=== PATIENT | male | born 1965 | race Caucasian/White ===

== ENCOUNTER 2017-01-17 18:55 | Emergency (ER) | payer OTHER | END 2017-01-17 21:55 | disposition home or self-care (01) | LOC: FER 18:55 | DX: S01.511A Laceration without foreign body of lip, initial encounter (principal); S20.319A Abrasion of unspecified front wall of thorax, initial encounter; Z23 Encounter for immunization; W22.8XXA Striking against or struck by other objects, initial encounter; Y92.69 Other specified industrial and construction area as the place of occurrence of the external cause; Y99.0 Civilian activity done for income or pay | CPT/HCPCS: 90471; 90715 ==

== ENCOUNTER 2021-02-15 20:41 | Emergency (ER) | payer OTHER ==
[2021-02-15 21:29] LABS: BASOPHIL 0.7 % (0-2); EOSINOPHIL 0.7 % (0-5); HCT 49.1 % (42.0-52.0); HGB 17.3 g/dl (13.2-18.0); LYMPHOCYTE 27.6 % (15-48); MCH 30.8 pg (25.0-31.0); MCHC 35.2 g/dL (32.0-36.0); MCV 87.4 fL (78.0-100.0); MONOCYTE 6.2 % (0-12); NEUTROPHIL 64.5 % (41-80); NRBC 0; PLT 254 K/uL (150-400); RBC 5.62 M/uL (4.70-6.00); RDW 12.4 % (11.5-14.0); WBC 11.1 K/uL (4.0-10.5)
[2021-02-15 21:35] LABS: ALBUMIN 4.4 g/dL (3.4-5.0); BILIRUBIN - TOTAL 0.8 mg/dL (0.2-1.0); CREATININE 1.19 mg/dL (0.67-1.17); GLOBULIN (CALCULATION) 3.5 g/dL; POTASSIUM 3.9 mmol/L (3.5-5.1); TOTAL PROTEIN 7.9 g/dL (6.4-8.2)
[2021-02-16 00:02] LABS: BILIRUBIN NEGATIVE (NEGATIVE); BLOOD 2+ Ery/uL (NEGATIVE); CLARITY CLEAR (CLEAR); COLOR YELLOW (YELLOW); GLUCOSE (U) NORMAL (NORMAL); LEUKOCYTES NEGATIVE Leu/uL (NEGATIVE); NITRITE NEGATIVE (NEGATIVE); PROTEIN TRACE (LOW) mg/dL (NEGATIVE); SPECIFIC GRAVITY >=1.030 (1.001-1.030); UROBILINOGEN 0.2 mg/dL (0.2-1.0)
[2021-02-16 00:07] LABS: URINARY RBC 20-50; URINARY WBC RARE
[2021-02-16 00:09] LABS: AMORPHOUS URATES CRYSTALS TRACE; BACTERIA TRACE; MUCOUS TRACE; SQUAMOUS EPITHELIAL CELLS RARE
[2021-02-16] MEDS ORDERED: FLOMAX0.4 MG PO (00:33)
[2021-02-16] MEDS ORDERED: IBUPROFEN800 MG PO (00:33)
[2021-02-16] MEDS ORDERED: ONDANSETRON ODT4 MG SL (00:33)
[2021-02-16] MEDS ORDERED: PERCOCET 5-3251 EACH PO (00:33)
== END 2021-02-16 00:50 | disposition home or self-care (01) ==
LOC: FER 20:41
PROVIDERS: Emergency Medicine Emergency Medical Services
DX: N13.2 Hydronephrosis with renal and ureteral calculous obstruction (principal); Z88.8 Allergy status to other drugs, medicaments and biological substances
CPT/HCPCS: 36415; 80053; 81001; 83605; 83690; 85025; J1170; J1885; J2405; J7030